=== PATIENT | male | born 1965 | race Caucasian/White ===

== ENCOUNTER 2016-08-26 18:35 | Emergency (ER) | payer OTHER ==
[2016-08-26 19:08] VITALS: BP 130/84; PULSE 70; TEMP 98.3; BMI 23.4
[2016-08-26] MEDS ORDERED: IBUPROFEN 400 MG TABLET (FP) PO ONE ×2 (19:43→19:46)
--- NOTE | 2016-08-26 19:47 | PDOC ---
History of Present Illness - General Chief Complaint: Pain Stated Complaint: PAIN Time Seen by Provider: 08/26/16 19:20 History Source: Patient, Family - History of Present Illness Occurred: reports: other Severity: reports: moderate Pain Location: reports: back Method of Injury: Yes: fall Past History - Past Medical History Other medical history: denies - Psycho/Social/Smoking Cessation Hx Anxiety: No Suicidal Ideation: No Smoking History: Former smoker Have you smoked in the past 12 months: No If you are a former smoker, when did you quit?: 10 Information on smoking cessation initiated: No Hx Alcohol Use: No Drug/Substance Use Hx: No Substance Use Type: None Review of Systems - Review of Systems Musculoskeletal: Yes: Back Pain, Joint Pain. No: Joint Swelling, Neck Pain Neurological: No: Numbness, Tingling, Weakness *Physical Exam - Vital Signs Last Vital Signs Temp Pulse Resp BP Pulse Ox 98.3 F 70 18 130/84 98 08/26/16 19:04 08/26/16 19:04 08/26/16 19:04 08/26/16 19:04 08/26/16 19:04 - Physical Exam General Appearance: Yes: Appropriately Dressed. No: Apparent Distress HEENT: positive: Normal Voice Neck: positive: Supple Respiratory/Chest: negative: Respiratory Distress Gastrointestinal/Abdominal: positive: Soft. negative: Tender Musculoskeletal: positive: Vertebral Tenderness (to L lower back, no midline ttp , bearing weight w/ no difficulty) Extremity: positive: Normal Inspection, Normal Range of Motion. negative: Tender, Swelling Integumentary: positive: Dry, Warm Neurologic: positive: Fully Oriented, Alert, Normal Mood/Affect, Motor Strength 5/5 Medical Decision Making - Medical Decision Making 08/26/16 19:45 51-year-old male denies any past medical history, diagnosed with left shoulder sprain 4 days ago at [facility] after presenting with left shoulder pain after fall onto his left side at work. Patient states he went back to work today but developed left lower back pain and was referred to ED. No lower extremity weakness , B/B incontinence or saddle anesthesia. Currently not taking anything for pain ass per patient. Patient well-appearing and stable with no evidence of serious injuries on exam. DC with [id number] pain control and PMD follow-up 08/26/16 19:47 *DC/Admit/Observation/Transfer Diagnosis at time of Disposition: Back sprain Shoulder sprain Qualifiers: Encounter type: initial encounter Shoulder sprain type: unspecified sprain Laterality: left Qualified Code(s): S43.402A - Unspecified sprain of left shoulder joint, initial encounter - Discharge Dispostion Disposition: HOME Condition at time of disposition: Good - Patient Instructions Printed Discharge Instructions: DI for Back Strain or Sprain Additional Instructions: Take motrin as needed for pain and follow up with your PMD if pain persists - Post Discharge Activity Work/School Note: Back to Work
== END 2016-08-26 19:56 | disposition home or self-care (01) ==
LOC: JERFT 18:35
DX: S43.492D Other sprain of left shoulder joint, subsequent encounter (principal); W18.39XD Other fall on same level, subsequent encounter; Y93.89 Activity, other specified; Y92.511 Restaurant or cafe as the place of occurrence of the external cause; Y99.0 Civilian activity done for income or pay
CPT/HCPCS: 99281-25

== ENCOUNTER 2022-03-03 09:55 | Emergency (ER) | payer OTHER ==
[2022-03-03 10:28] VITALS: BP 147/81; PULSE 98; RESP 19; TEMP 98.9; BMI 25.0
[2022-03-03] MEDS ORDERED: ACETAMINOPHEN 500 MG TABLET (FP) PO ONE (12:21)
[2022-03-03] MEDS ORDERED: METHOCARBAMOL 500 MG TABLET PO ONE ×2 (12:21→12:23)
[2022-03-03] MEDS ORDERED: LIDOCAINE HCL 5% TOP OINTMENT 50 GM TUBE TP ONE (12:22)
[2022-03-03] MEDS ORDERED: LIDOCAINE 5% TOPICAL PATCH TP ONE (12:23)
[2022-03-03] MEDS ORDERED: LIDOCAINE 5% TOPICAL PATCH ONE (12:25)
[2022-03-03] MEDS ORDERED: METHOCARBAMOL 500 MG TABLET ONE (12:25)
[2022-03-03] MEDS ORDERED: ACETAMINOPHEN 500 MG TABLET (FP) ONE (12:25)
== END 2022-03-03 12:36 | disposition home or self-care (01) ==
LOC: JERFT 09:55 → JER 09:55 → JERFT 12:36
DX: M54.50 Low back pain, unspecified (principal)
CPT/HCPCS: 99283-25